=== PATIENT | male | born 1965 | race Caucasian/White ===

== ENCOUNTER 2019-11-18 06:45 | Observation (INO) ==
[2019-11-18 07:52] LABS: Basophils # 0.1 K/mcL (0.0-0.2); Basophils % 1.1 %; Eosinophils # 0.3 K/mcL (0.0-0.6); Eosinophils % 3.8 %; Hematocrit 35.3 % (37.5-50.1); Hemoglobin 11.1 g/dL (12.9-16.9); Immature Granulocytes % 0.3 % (0-4); Lymphocytes % 26.6 %; Mean Corpuscular HGB Conc 31.4 g/dL (31.6-35.5); Mean Corpuscular Hemoglobin 25.8 pg (28.0-33.3); Mean Corpuscular Volume 81.9 fL (83.0-100.0); Mean Platelet Volume 10.6 fL (9.4-12.4); Monocytes # 0.7 K/mcL (0.0-1.3); Monocytes % 9.4 %; Neutrophils # 4.3 K/mcL (1.6-8.9); Platelet Count 107 K/mcL (140-400); Red Blood Count 4.31 M/mcL (4.19-5.50); Red Cell Distribution Width 16.4 % (11.5-14.5); Segmented Neutrophils % 58.8 %; White Blood Count 7.3 K/mcL (4.3-11.1)
[2019-11-18 07:56] LABS: INR 1.6; Prothrombin Time 18.2 Seconds (9.4-12.1)
[2019-11-18 07:59] LABS: Activated Partial Thrombo Time 44.3 Seconds (26.0-36.0)
[2019-11-18 08:10] LABS: Alanine Aminotransferase 12 Units/L (7-52); Albumin 3.1 g/dL (3.5-5.7); Albumin/Globulin Ratio 0.8 (1.1-2.2); Alkaline Phosphatase 106 Units/L (34-104); Aspartate Amino Transferase 28 Units/L (13-39); BUN/Creatinine Ratio 10 (6-26); Bilirubin,Direct 0.7 mg/dL (0.0-0.2); Bilirubin,Indirect 1.6 mg/dL (0.0-1.0); Bilirubin,Total 2.3 mg/dL (0.3-1.0); Blood Urea Nitrogen 13 mg/dL (6-20); Calcium 9.1 mg/dL (8.6-10.3); Carbon Dioxide 23 mEq/L (23-29); Chloride 103 mEq/L (98-107); Glucose 126 mg/dL (70-105); Osmolality,Calculated 282 (280-300); Potassium 3.7 mEq/L (3.5-5.1); Sodium 135 mEq/L (136-145); Total Protein 7.1 g/dL (6.4-8.9); Troponin I < 0.03 ng/mL (< 0.04); eGFR For African Americans > 60 (> 60); eGFR For Non-African Americans 55 (> 60)
[2019-11-18 08:49] LABS: Bilirubin,Urine Negative (Negative); Blood,Urine Negative (Negative); Clarity,Urine Clear (Clear); Color,Urine Yellow (Yellow); Glucose,Urine (UA) Normal (Normal); Ketones,Urine Negative (Negative); Leukocyte Esterase,Urine Negative (Negative); Nitrite,Urine Negative (Negative); PH,Urine 6.5 pH Units (5.0-8.0); Protein,Urine Trace mg/dL (Neg-Trace); Specific Gravity,Urine 1.022 (1.010-1.025)
[2019-11-18 12:51] LABS: Adenovirus Not Detected (Not Detect); Bordetella Pertussis Not Detected (Not Detect); Chlamydophila pneumoniae Not Detected (Not Detect); Coronavirus 229E Not Detected (Not Detect); Coronavirus HKU1 Not Detected (Not Detect); Coronavirus NL63 Not Detected (Not Detect); Coronavirus OC43 Not Detected (Not Detect); Human Metapneumovirus Not Detected (Not Detect); Human Rhinovirus/Enterovirus Not Detected (Not Detect); Influenza A Subtype 2009 H1 Not Detected (Not Detect); Influenza B Not Detected (Not Detect); Mycoplasma pneumoniae Not Detected (Not Detect); Parainfluenza Virus 1 Not Detected (Not Detect); Parainfluenza Virus 2 Not Detected (Not Detect); Parainfluenza Virus 3 Not Detected (Not Detect); Parainfluenza Virus 4 Not Detected (Not Detect); Respiratory Syncytial Virus Not Detected (Not Detect); SARS-CoV-2 Not Detected (Not Detect)
[2019-11-18] MEDS ORDERED: *HR* OxyCODONE Immed Rel 5 MG TABLET PO PRN (13:09)
[2019-11-18] MEDS ORDERED: *HR* HYDROcodone/Acet 5/325 mg TABLET PO PRN (13:09)
[2019-11-18] MEDS ORDERED: Acetaminophen 325 MG TABLET PO PRN (13:09)
[2019-11-18] MEDS ORDERED: Ondansetron 4 MG/2 ML VIAL IVP PRN (13:09)
[2019-11-18] MEDS ORDERED: Naloxone 0.4 MG/ML INJ IVP PRN (13:09)
[2019-11-18] MEDS ORDERED: Ringers Solution, Lactated 1,000 ML IVC SCH (13:15)
[2019-11-18] MEDS ORDERED: Dextrose Gel 15 GM/37.5 ML TUBE PO PRN ×2 (14:03)
[2019-11-18] MEDS ORDERED: *HR* Dextrose 50 % in Water (Vial) 50 ML VIAL IVP PRN (14:03)
[2019-11-18] MEDS ORDERED: D5% in Water 1,000 ML IVC PRN (14:03)
[2019-11-18] MEDS ORDERED: Baclofen 10 MG TABLET PO PRN (14:05)
[2019-11-18] MEDS: Nicotine 21 MG PATCH.TD24 TD SCH (17:00)
[2019-11-18] MEDS: *HR* Heparin 5,000 UNIT/ML VIAL SQ SCH (17:00)
[2019-11-18] MEDS: Insulin LISPRO 300 UNITS/3 ML VIAL SQ SCH (17:00)
[2019-11-18] MEDS: traZODone 50 MG TABLET PO SCH (20:33)
[2019-11-19] MEDS: *HR* Heparin 5,000 UNIT/ML VIAL SQ SCH ×2 (05:36→17:51)
[2019-11-19 06:45] LABS: Basophils % 1.2 %; Hemoglobin 10.9 g/dL (12.9-16.9); Monocytes % 11.4 %; Red Cell Distribution Width 16.5 % (11.5-14.5)
[2019-11-19 06:47] LABS: BUN/Creatinine Ratio 12 (6-26); Basophils # 0.1 K/mcL (0.0-0.2); Blood Urea Nitrogen 14 mg/dL (6-20); Calcium 8.9 mg/dL (8.6-10.3); Carbon Dioxide 28 mEq/L (23-29); Chloride 105 mEq/L (98-107); Eosinophils # 0.3 K/mcL (0.0-0.6); Eosinophils % 5.5 %; Glucose 100 mg/dL (70-105); Hematocrit 34.4 % (37.5-50.1); Immature Granulocytes % 0.2 % (0-4); Immature Platelets 4.3 % (1.1-6.1); Lymphocytes # 1.6 K/mcL (0.6-4.6); Lymphocytes % 27.5 %; Magnesium 2.3 mg/dL (1.6-2.6); Mean Corpuscular HGB Conc 31.7 g/dL (31.6-35.5); Mean Corpuscular Hemoglobin 26.8 pg (28.0-33.3); Mean Corpuscular Volume 84.5 fL (83.0-100.0); Mean Platelet Volume 10.8 fL (9.4-12.4); Monocytes # 0.7 K/mcL (0.0-1.3); Neutrophils # 3.1 K/mcL (1.6-8.9); Osmolality,Calculated 287 (280-300); Phosphorous 3.9 mg/dL (2.7-4.5); Potassium 3.8 mEq/L (3.5-5.1); Red Blood Count 4.07 M/mcL (4.19-5.50); Segmented Neutrophils % 54.2 %; Sodium 138 mEq/L (136-145); White Blood Count 5.8 K/mcL (4.3-11.1); eGFR For African Americans > 60 (> 60); eGFR For Non-African Americans > 60 (> 60)
[2019-11-19 06:53] LABS: Thyroid Stimulating Hormone 3.947 mcIU/mL (0.340-5.600)
[2019-11-19 07:21] LABS: Platelet Count 96 K/mcL (140-400)
[2019-11-19] MEDS: Insulin LISPRO 300 UNITS/3 ML VIAL SQ SCH ×3 (07:52→17:43)
[2019-11-19] MEDS: Thiamine (B-1) 100 MG TABLET PO SCH (07:58)
[2019-11-19] MEDS: Nicotine 21 MG PATCH.TD24 TD SCH (07:58)
[2019-11-19] MEDS: traZODone 50 MG TABLET PO SCH (21:52)
[2019-11-20 04:40] LABS: Basophils % 1.2 %; Mean Platelet Volume 10.8 fL (9.4-12.4)
[2019-11-20 04:42] LABS: Basophils # 0.1 K/mcL (0.0-0.2); Eosinophils # 0.3 K/mcL (0.0-0.6); Eosinophils % 5.1 %; Hematocrit 31.8 % (37.5-50.1); Hemoglobin 10.1 g/dL (12.9-16.9); Immature Granulocytes % 0.2 % (0-4); Immature Platelets 4.1 % (1.1-6.1); Lymphocytes # 1.4 K/mcL (0.6-4.6); Lymphocytes % 23.6 %; Mean Corpuscular HGB Conc 31.8 g/dL (31.6-35.5); Mean Corpuscular Hemoglobin 26.9 pg (28.0-33.3); Mean Corpuscular Volume 84.8 fL (83.0-100.0); Monocytes # 0.8 K/mcL (0.0-1.3); Neutrophils # 3.3 K/mcL (1.6-8.9); Red Blood Count 3.75 M/mcL (4.19-5.50); Red Cell Distribution Width 16.8 % (11.5-14.5); Segmented Neutrophils % 55.9 %; White Blood Count 5.9 K/mcL (4.3-11.1)
[2019-11-20 04:49] LABS: Platelet Count 92 K/mcL (140-400)
[2019-11-20 04:53] LABS: BUN/Creatinine Ratio 15 (6-26); Blood Urea Nitrogen 17 mg/dL (6-20); Calcium 8.8 mg/dL (8.6-10.3); Carbon Dioxide 24 mEq/L (23-29); Chloride 106 mEq/L (98-107); Glucose 103 mg/dL (70-105); Osmolality,Calculated 288 (280-300); Potassium 3.8 mEq/L (3.5-5.1); Sodium 138 mEq/L (136-145); eGFR For African Americans > 60 (> 60); eGFR For Non-African Americans > 60 (> 60)
[2019-11-20] MEDS: *HR* Heparin 5,000 UNIT/ML VIAL SQ SCH ×2 (05:28→16:20)
[2019-11-20] MEDS: Insulin LISPRO 300 UNITS/3 ML VIAL SQ SCH ×3 (07:56→21:54)
[2019-11-20] MEDS: Thiamine (B-1) 100 MG TABLET PO SCH (08:00)
[2019-11-20 10:30] LABS: Albumin/Globulin Ratio 0.8 (1.1-2.2); Bilirubin,Direct 0.7 mg/dL (0.0-0.2); Bilirubin,Indirect 1.4 mg/dL (0.0-1.0); Bilirubin,Total 2.1 mg/dL (0.3-1.0)
[2019-11-20] MEDS: Nicotine 21 MG PATCH.TD24 TD SCH (10:59)
[2019-11-20] MEDS: traZODone 50 MG TABLET PO SCH (21:15)
[2019-11-21] MEDS: *HR* Heparin 5,000 UNIT/ML VIAL SQ SCH ×2 (05:25→17:40)
[2019-11-21] MEDS: Insulin LISPRO 300 UNITS/3 ML VIAL SQ SCH ×3 (08:28→17:39)
[2019-11-21] MEDS: Nicotine 21 MG PATCH.TD24 TD SCH (08:29)
[2019-11-21] MEDS: Thiamine (B-1) 100 MG TABLET PO SCH (08:29)
[2019-11-21 11:22] VITALS: BP 124/66
== END 2019-11-21 18:14 ==
LOC: EMEROOARM 06:45 → 3NENU 06:45 → SUATTDRO 12:56 → 3NENU 13:43
PROVIDERS: ADMIT Pharmacist; ATTEND Internal Medicine